=== PATIENT | female | born 1965 | race Caucasian/White ===

== ENCOUNTER 2018-06-19 17:22 | Emergency (ER) | payer OTHER, BC ==
[2018-06-19] MEDS ORDERED: IBUPROFEN 600 MG TABLET (FP) PO ONE ×2 (17:35→17:45)
[2018-06-19 17:43] VITALS: BP 157/90; PULSE 80; TEMP 98; BMI 36.8
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
== END 2018-06-19 19:05 | disposition home or self-care (01) ==
LOC: FER 17:22
DX: S89.91XA Unspecified injury of right lower leg, initial encounter (principal); S99.911A Unspecified injury of right ankle, initial encounter; W01.0XXA Fall on same level from slipping, tripping and stumbling without subsequent striking against object, initial encounter; Y93.89 Activity, other specified; Y92.219 Unspecified school as the place of occurrence of the external cause; Y99.0 Civilian activity done for income or pay; F17.210 Nicotine dependence, cigarettes, uncomplicated
CPT/HCPCS: 73562-TC-RT-FY; 73610-TC-RT-FY; 73630-TC-RT-FY; 99281-25

== ENCOUNTER 2018-08-17 15:04 | Emergency (ER) | payer OTHER, BC ==
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
[2018-08-17] MEDS ORDERED: IBUPROFEN 400 MG TABLET (FP) PO ONE ×2 (15:11→15:21)
[2018-08-17 15:18] VITALS: BP 148/79; PULSE 81; TEMP 98.3; BMI 34.9
== END 2018-08-17 15:54 | disposition home or self-care (01) ==
LOC: FER 15:04
DX: T14.8XXA Other injury of unspecified body region, initial encounter (principal); Y04.0XXA Assault by unarmed brawl or fight, initial encounter; Y93.89 Activity, other specified; Y92.89 Other specified places as the place of occurrence of the external cause; F17.210 Nicotine dependence, cigarettes, uncomplicated
CPT/HCPCS: 73562-TC-RT-FY; 73610-TC-RT-FY; 73630-TC-RT-FY; 99282-25

== ENCOUNTER 2018-10-26 15:50 | Emergency (ER) | payer OTHER, BC ==
[2018-10-26 16:18] VITALS: BP 128/97; PULSE 75; TEMP 98.5; BMI 39.6
[2018-10-26] MEDS ORDERED: IBUPROFEN 600 MG TABLET (FP) PO ONE ×2 (16:30→17:01)
--- NOTE | 2018-10-26 16:30 | PDOC ---
History of Present Illness - General Chief Complaint: Injury Stated Complaint: RIGHT ANKLE PAIN Time Seen by Provider: 10/26/18 16:11 Past History - Past Medical History Allergies/Adverse Reactions: Allergies Allergy/AdvReac Type Severity Reaction Status Date / Time oxycodone HCl [From Percocet] AdvReac Intermediate Vomiting Verified 10/26/18 16 :08 Home Medications: Ambulatory Orders Montelukast Sodium [Singulair] 10 mg PO DAILY 06/19/18 Topiramate [Topamax] 200 mg PO DAILY 06/19/18 Ibuprofen [Motrin -] 600 mg PO PRN PRN 08/17/18 COPD: No - Suicide/Smoking/Psychosocial Hx Smoking Status: Yes Smoking History: Never smoked Have you smoked in the past 12 months: No Number of Cigarettes Smoked Daily: 1 If you are a former smoker, when did you quit?: YEARS AGO Hx Alcohol Use: No Drug/Substance Use Hx: No Substance Use Type: Alcohol *Physical Exam - Vital Signs Last Vital Signs Temp Pulse Resp BP Pulse Ox 98.5 F 75 16 128/97 99 10/26/18 16:04 10/26/18 16:04 10/26/18 16:04 10/26/18 16:04 10/26/18 16:04 Moderate Sedation - Procedure Monitoring Vital Signs: Procedure Monitoring Vital Signs Temperature 98.5 F 10/26/18 16:04 Pulse Rate 75 10/26/18 16:04 Respiratory Rate 16 10/26/18 16:04 Blood Pressure 128/97 10/26/18 16:04 O2 Sat by Pulse Oximetry (%) 99 10/26/18 16:04 *DC/Admit/Observation/Transfer - Discharge Dispostion Condition at time of disposition: Good - Referrals Referrals: Steven Horne MD [Primary Care Provider] - - Patient Instructions - Post Discharge Activity
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
== END 2018-10-26 18:22 | disposition home or self-care (01) ==
LOC: FER 15:50
DX: S93.401A Sprain of unspecified ligament of right ankle, initial encounter (principal); M25.571 Pain in right ankle and joints of right foot; W50.0XXA Accidental hit or strike by another person, initial encounter; Y93.9 Activity, unspecified; Y92.9 Unspecified place or not applicable; Y99.0 Civilian activity done for income or pay
CPT/HCPCS: 73610-TC-RT-FY; 73630-TC-RT-FY; 99281-25